=== PATIENT | male | born 1965 | race Caucasian/White ===

== ENCOUNTER 2018-04-29 20:40 | Emergency (ER) | payer OTHER ==
[~2018-04-29] VITALS: Ht 175.3 cm; Wt 77.7 kg
[~2018-04-29 20:40] MED LIST: ARIP15TA2 PO; BENZ1TAB70 PO; CLON2TAB3 PO; CLOZ100 PO; DOCU250C16 PO; ESCI20TA PO; LEVE500T53 PO; METF-446 PO; METO50 PO; ZOLP5TAB2 PO
[2018-04-29] MEDS ORDERED: FINA5TAB41 PO (21:05)
[2018-04-29] MEDS ORDERED: DIVA-76 PO (21:05)
[2018-04-29] MEDS ORDERED: PHENY100 PO (21:05)
[2018-04-29] MEDS ORDERED: TAMS0.4C32 PO (21:05)
[2018-04-29] MEDS ORDERED: FAMO20 PO (21:05)
[2018-04-29] MEDS ORDERED: GLIP5 PO (21:05)
[2018-04-29] MEDS ORDERED: ARIP15TA2 PO (21:06)
[2018-04-29 21:09] LABS: GLUCOSE,POINT OF CARE 109 MG/DL (70-110)
[2018-04-29] MEDS ORDERED: DiphenhydrAMINE HCL 50 MG/ML VIAL IM ONE (21:45)
[2018-04-29 21:49] LABS: ANION GAP 4 mmol/L (8-16); CALCIUM, TOTAL 8.6 mg/dL (8.8-10.5); CARBON DIOXIDE 27 mmol/L (22-29); CHLORIDE 107 mmol/L (98-107); CREATININE 1.03 mg/dL (0.60-1.30); GLOMERULAR FILTR. RATE CALC > 60 mL/min (>60); GLUCOSE,RANDOM 119 mg/dL (70-110); POTASSIUM 3.7 mmol/L (3.5-5.1); SODIUM SERUM 138 mmol/L (136-145); UREA NITROGEN, BLOOD 23 mg/dL (7-18)
[2018-04-29 21:55] LABS: ALANINE AMINOTRANSFERASE 42 U/L (12-78); ALBUMIN 4.1 g/dL (3.4-5.0); ALKALINE PHOSPHATASE 78 U/L (46-116); ASPARTATE AMINOTRANSFERASE 31 U/L (15-37); BILIRUBIN,TOTAL 0.4 mg/dL (0.1-1.0); TOTAL PROTEIN, SERUM 7.1 g/dL (6.4-8.2)
[2018-04-29 22:01] LABS: BASOPHILS % (AUTO) 0.5 % (0.0-2.0); HEMATOCRIT 43.2 % (41-53); HEMOGLOBIN 15.2 g/dL (13.5-17.5); LYMPHOCYTES # (AUTO) 2.6 K/uL (1.0-4.8); LYMPHOCYTES % (AUTO) 27.6 % (22.0-44.0); MEAN CORPUSCULAR HEMOGLOBIN 31.9 pg (26.0-34.0); MEAN CORPUSCULAR HGB CONC 35.1 G/dL (31.0-37.0); MEAN CORPUSCULAR VOLUME 91 fL (80-100); MONOCYTES # (AUTO) 0.9 K/uL (0.1-1.0); MONOCYTES % (AUTO) 9.3 % (2.0-9.0); NEUTROPHILS # (AUTO) 5.9 K/uL (1.8-7.7); NEUTROPHILS % (AUTO) 61.6 % (40.0-70.0); RED BLOOD CELL COUNT(AUTO) 4.76 MIL/uL (4.50-5.90); RED CELL DISTRIBUTION WIDTH 13.5 % (11.5-14.5)
[2018-04-29 22:42] LABS: PLATELET COUNT (AUTO) 135 K/uL (150-450)
[2018-04-29 23:19] VITALS: BP 123/77
== END 2018-04-29 23:39 | disposition home or self-care (01) ==
LOC: EMS 20:42
DX: F20.9 Schizophrenia, unspecified (principal); G25.9 Extrapyramidal and movement disorder, unspecified; M54.2 Cervicalgia; F41.9 Anxiety disorder, unspecified; F32.9 Major depressive disorder, single episode, unspecified; E11.9 Type 2 diabetes mellitus without complications; I10 Essential (primary) hypertension; N40.0 Benign prostatic hyperplasia without lower urinary tract symptoms; Z88.8 Allergy status to other drugs, medicaments and biological substances; Z79.4 Long term (current) use of insulin; Z79.899 Other long term (current) drug therapy
CPT/HCPCS: 36415; 80053; 82962; 85025; 96372; 99284; G0480; J1200